=== PATIENT | male | born 1960 | race African-American/Black ===

== ENCOUNTER 2017-01-12 21:13 | Observation (INO) | payer OTHER ==
[~2017-01-12] VITALS: Ht 180.3 cm; Wt 111.8 kg
[~2017-01-12 21:13] MED LIST: ADVAIR 250/501 DISK IH; ASPIRIN81 M2 PO; Advair 250/50 Diskus IH; Allegra PO; COMBIVENT RESPIM4 GM IH; COUMADIN10 MG PO; DILANTIN100 MG PO; Dilantin PO; ECOTRIN325 MG PO; Feosol PO; IRON325 MG PO; KEPPRA500 MG PO; Keppra PO; LASIX20 MG PO; Lasix PO; PHENOBARBITAL32.4 MG PO; PHENobarbital PO; PRINIVIL20 MG PO; SINGULAIR10 MG PO; SPIRIVA1 INHALATI IH; Singulair PO; Zestril,Prinivil PO; Zithromax PO
[2017-01-12 22:30] LABS: HEMATOCRIT 33.8 % (38.0-50.0); MCH 29.3 PG (29.0-34.0); MCHC 30.8 G/DL (30.0-36.0); MCV 95.2 FL (86-99); MEAN PLAT.VOLUME 9.7 uM^3 (9.0-12.4); PLATELET COUNT 186 K/uL (156-360); RBC DIS.WIDTH-CV 14.8 % (11.8-14.6); RBC DIS.WIDTH-SD 51.9 % (39-53); RED BLOOD COUNT 3.55 M/uL (4.00-5.50); WHITE BLOOD COUNT 3.4 K/uL (4.1-10.2)
[2017-01-12 22:38] LABS: CHLORIDE 110 mEq/L (99-109); POTASSIUM 4.2 mEq/L (3.7-5.4); SODIUM 141 mEq/L (136-147)
[2017-01-12 22:40] LABS: GLUCOSE 75 mg/dL (70-99)
[2017-01-12 22:41] LABS: ANION GAP 10 MEQ/L (2-14)
[2017-01-12 22:43] LABS: PROTHROMBIN TIME 36.2 (9.2-11.2)
[2017-01-12 22:44] LABS: GFR ESTIMATE (CALCULATED) > 59 mL/min/; UREA NITROGEN (BUN) 18 mg/dL (9-23)
[2017-01-12 22:52] LABS: INTER. NORMALIZED RATIO 3.4
[2017-01-12 22:59] LABS: TROP-I INTERPRETATION NEGATIVE; TROPONIN-I < 0.01 ng/mL (0.0-0.30)
[2017-01-13] MEDS ORDERED: LO-DOSE ASPIRIN81 M1 PO (00:30)
[2017-01-13] MEDS ORDERED: ALLEGRA60 MG PO (00:33)
[2017-01-13 03:00] VITALS: BP 136/85
[2017-01-13 05:25] LABS: HEMATOCRIT 34.9 % (38.0-50.0); MCH 29.2 PG (29.0-34.0); MCHC 30.1 G/DL (30.0-36.0); MCV 97.2 FL (86-99); MEAN PLAT.VOLUME 10.1 uM^3 (9.0-12.4); PLATELET COUNT 182 K/uL (156-360); RBC DIS.WIDTH-CV 14.8 % (11.8-14.6); RBC DIS.WIDTH-SD 53.4 % (39-53); RED BLOOD COUNT 3.59 M/uL (4.00-5.50); WHITE BLOOD COUNT 3.5 K/uL (4.1-10.2)
[2017-01-13 05:38] LABS: ALKALINE PHOSPHATASE 53 IU/L (3-129); ANION GAP 8 MEQ/L (2-14); CHLORIDE 109 MEQ/L (99-109); GFR ESTIMATE (CALCULATED) > 59 mL/min/; GLUCOSE 65 mg/dL (70-99); SAMPLE HEMOLYSIS CHECK 0; SAMPLE ICTERIC CHECK 0; SAMPLE LIPEMIA CHECK 0; SODIUM 142 MEQ/L (136-147); TOTAL BILIRUBIN 0.2 MG/DL (0.0-1.0); UREA NITROGEN (BUN) 15 mg/dL (9-23)
[2017-01-13 05:42] LABS: TROP-I INTERPRETATION NEGATIVE; TROPONIN-I < 0.01 ng/mL (0.0-0.30)
[2017-01-13 07:00] VITALS: BP 109/60
[2017-01-13 11:53] VITALS: BP 140/69
== END 2017-01-13 14:40 | disposition home or self-care (01) ==
LOC: EME → EDBD 21:13 → EME 21:13 → EDOF 01-13 01:49 → 5WEST 01-13 01:49
PROVIDERS: Emergency Medicine; Internal Medicine
DX: R07.89 Other chest pain (principal); I10 Essential (primary) hypertension; D64.9 Anemia, unspecified; F31.9 Bipolar disorder, unspecified; G40.909 Epilepsy, unspecified, not intractable, without status epilepticus; J44.9 Chronic obstructive pulmonary disease, unspecified; E78.5 Hyperlipidemia, unspecified; Z86.711 Personal history of pulmonary embolism; Z79.01 Long term (current) use of anticoagulants
CPT/HCPCS: 71020; 80048; 80053; 80185; 84484; 85027; 85610; 85730; 93005; 94640; 99202; 99281; 99285; G0378; J2270; J2405